=== PATIENT | female | born 2000 | race African-American/Black ===

== ENCOUNTER 2018-07-13 17:43 | Emergency (ER) | payer SELFPAY ==
[~2018-07-13] VITALS: Ht 167.6 cm; Wt 50.8 kg
--- OUTSIDE RECORDS SUMMARY | 2018-07-13 17:47 | XMS REPORT | Clinical Summary ---
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 Active diphenhydrAMINE Take 25 mg by 0 (BENADRYL) 25 mg tablet mouth nightly as needed for sleep. Active azelastine (ASTELIN) 137 1 spray into 30 mL 0 mcg (0.1 %) nasal spray each nostril 9 2 (two) times a day as needed for rhinitis. Use in each nostril as directed 07/03/2018 Discontinued amoxicillin (AMOXIL) 875 Take 875 mg 0 MG tablet by mouth 2 (two) times a day. 07/06/2018 ondansetron ODT (ZOFRAN Take 1 tablet 6 tablet 0 ODT) 4 MG disintegrating (4 mg total) 9 tablet by mouth every 8 (eight) hours as needed for nausea or vomiting for up to 3 days. Active Problems Not on file Encounters Care Team Description Date Type Specialty Leno Ravi MD Adverse effect of drug, initial encounter (Primary Dx); Seasonal allergies 07/08/2018 Emergency Emergency Medicine Pepe Naranjo MD Medication side effect, initial encounter after taking amoxicillin (Primary Dx) 07/03/2018 Emergency Emergency Medicine 07/03/2018 Travel after 07/12/2017 Social History Date Tobacco Use Types Packs/Day Years Used Never Smoker Smokeless Tobacco: Never Used Alcohol Use Drinks/Week oz/Week Comments No Alcohol Habits Answer Date Recorded How often do you have a drink containing alcohol? Never 07/03/2018 How many drinks containing alcohol do you have on Not asked a typical day when you are drinking? How often do you have six or more drinks on one Not asked occasion? Sex Assigned at Date Recorded Not on file Industry Job Start Date Occupation Not on file Not on file Not on file Travel End Travel History Travel Start No recent travel history available. Last Filed Vital Signs Time Taken Vital Sign Reading 07/08/2018 1:30 AM CDT Blood Pressure 133/87 07/08/2018 1:30 AM CDT Pulse 105 07/08/2018 1:30 AM CDT Temperature 37.2 C (99 F) 07/08/2018 1:30 AM CDT Respiratory Rate 18 07/08/2018 1:30 AM CDT Oxygen Saturation 100% - Inhaled Oxygen - Concentration 07/08/2018 1:07 AM CDT Weight 50.8 kg (112 lb) 07/08/2018 1:07 AM CDT Height 167.6 cm (5' 6") 07/08/2018 1:07 AM CDT Body Mass Index 18.08 Plan of Treatment Not on file Results Not on fileafter 07/12/2017 Advance Directives Patient has advance care planning documents on file. For more information, aide phelps contact: Paresh Kan [phone] [facility] [place] [address]
--- NOTE | 2018-07-13 18:36 | Diagnostic Imaging Report ---
EXAMINATION: CHEST 2 VIEWS INDICATION: Productive cough, fever. COMPARISON: None FINDINGS: TUBES and LINES: None. LUNGS: Lungs are well inflated. There is mild bronchial wall thickening. There is no evidence of pneumonia or pulmonary edema. PLEURA: No pleural effusion or pneumothorax. HEART AND MEDIASTINUM: The cardiomediastinal silhouette is unremarkable. BONES AND SOFT TISSUES: No acute osseous lesion. Bilateral nipple rings. UPPER ABDOMEN: No free air under the diaphragm. IMPRESSION: No evidence of pneumonia. Mild bronchial wall thickening, which may reflect bronchitis in a patient with cough. Signed by: Dr. Phillip Singleton MD on 07/13/2018 6:32 PM
[2018-07-13] MEDS ORDERED: HYDROCODONE/CHLORPHENIRAMINE 5 ML LIQCR PO PRN (21:30)
== END 2018-07-13 21:28 | disposition home or self-care (01) ==
LOC: ER 17:43
DX: R05 Cough (principal); J20.9 Acute bronchitis, unspecified
CPT/HCPCS: 71046; 87400; 99283